=== PATIENT | male | born 2000 | race African-American/Black ===

== ENCOUNTER 2022-06-26 12:13 | Outpatient (CLI) | payer MEDICAID, SELFPAY | END 2022-06-26 12:14 | disposition home or self-care (01) | LOC: LKVREF 12:26 | PROVIDERS: Visit Provider Emergency Medicine | DX: Z11.3 Encounter for screening for infections with a predominantly sexual mode of transmission (principal) | CPT/HCPCS: 87491; 87591 ==

== ENCOUNTER 2023-03-28 09:48 | Outpatient (CLI) | payer MEDICAID, SELFPAY | END 2023-03-28 09:49 | disposition home or self-care (01) | PROVIDERS: PCP Family Medicine; Visit Provider Family Medicine | DX: R07.81 Pleurodynia (principal) | CPT/HCPCS: 80053; 83021 ==

== ENCOUNTER 2023-03-29 10:35 | Outpatient (CLI) | payer MEDICAID, SELFPAY ==
--- NOTE | 2023-03-29 11:00 | CRLHL7_ITS ---
For Patients: As a result of the Century Cures Act, medical imaging exams and procedure reports are released immediately into your electronic medical record. You may view this report before your referring provider. If you have questions, please contact your health care provider. INDICATION: PLEURODYNIA COMPARISON: none TECHNIQUE: CT volumetric acquisition was performed of the thorax during intravenous infusion of 95 cc Isovue 370 nonionic intravenous contrast. Please note that all CT scans at this facility use dose modulation, iterative reconstruction, and/or weight-based dosing when appropriate to reduce radiation dose to as low as reasonably achievable. FINDINGS: The CT images are of acceptable quality and demonstrate normal uniform vascular enhancement within the pulmonary arteries. There are no suspicious filling defects which would indicate pulmonary thromboemboli. There is no evidence of pleural or pericardial fluid. The heart and thoracic aorta appear normal. There is no evidence of lymphadenopathy within the central mediastinum or within either axilla. On lung window settings, there is no evidence of pneumothorax. The pulmonary parenchyma has uniform density and there is no evidence of hemorrhage or pneumonia. IMPRESSION: No evidence of pulmonary thromboembolism. Please note that all CT scans at this facility use dose modulation, iterative reconstruction, and/or weight-based dosing when appropriate to reduce radiation dose to as low as reasonably achievable. Dictated by Cristian Humphreys MD @ 03/29/2023 1:39:21 PM (Electronically Signed)
== END 2023-03-29 10:36 | disposition home or self-care (01) ==
LOC: CT 10:38
PROVIDERS: PCP Family Medicine; Visit Provider Family Medicine
DX: R07.81 Pleurodynia (principal)
CPT/HCPCS: 71275; Q9967

== ENCOUNTER 2023-06-13 10:48 | Outpatient (CLI) | payer MEDICAID, SELFPAY | END 2023-06-13 10:49 | disposition home or self-care (01) | PROVIDERS: PCP Family Medicine; Visit Provider Family Medicine | DX: N34.2 Other urethritis (principal); Z11.3 Encounter for screening for infections with a predominantly sexual mode of transmission | CPT/HCPCS: 86592; 86703; 87086; 87491; 87591 ==

== ENCOUNTER 2023-06-15 16:06 | Emergency (ER) | payer MEDICAID, SELFPAY ==
[2023-06-15 16:28] VITALS: BP 152/77; PULSE 82; RESP 16; TEMP 36.7; O2SAT 98; BMI 29.1
--- NOTE | 2023-06-15 16:44 | ED.GENADULT ---
HPI - General Adult General Chief complaint: Urogenital Problems, Male Stated complaint: sharp pain in groin area Time Seen by Provider: 06/15/23 16:41 History of Present Illness HPI narrative: Sharp pain/ burning in groin area for last 5-6 days. Pain is coming from tip of penis, no testicular pain . Getting worse . 7/10 pain. Not peeing much , or having BM. Rectal pain too. No pain with urination. When asked about STD's says he is unsure. No medications for pain. 23-year-old man presenting to the emergency department with complaint of genitourinary pain specifically distal penis. Has a ?stinging? sensation. Does not actually have dysuria. No pyuria noted. Says that his says to go in and get checked out and tell them everything. When I get to the end of this interview and I request again whether not there is anything that I need to know, he says no. I asked further about what he is most afraid of; it appears that he is worried about potential herpes but does not know how he would have gotten that. He does not having abdominal pain. He notes that he has been urinating less. Also is constipated. Could not remember the when asked when the last time is that he had a bowel movement but then when asked specifically about this morning he admits to 2 small turds. He does admit to straining at bowel. Sounds like spouse is concerned that he might have a prostate problem. Has had no fever. He admits to anxiety ramping up over what might be going on. He then describes a tingling that he has been noting at the shaft base of the penis. Related Data Previous Rx's Medication Instructions Recorded amitriptyline 10 mg tablet 10 - 50 mg (1 - 5 x 10 mg) PO QHS 05/23/23 #90 tabs doxycycline monohydrate 100 mg 100 mg PO BID #14 tabs 06/19/23 tablet Allergies Allergy/AdvReac Type Severity Reaction Status Date / Time No Known Drug Allergies Allergy Verified 06/19/23 15:37 Review of Systems Status of ROS: Reports: 6 or more systems reviewed and unremarkable except as noted in History and below [facility] Medical History (Updated 06/15/23 @ 19:23 by Cristian Rothman MD) Urethritis ?N34.2 - Other urethritis (ICD-10) Dysuria ?R30.0 - Dysuria (ICD-10) Surgical History (Updated 03/28/23 @ 10:01 by Ayush Holder MD) History of surgery on arm ?Z98.890 - Other specified postprocedural states (ICD-10) Social History Smoking Status: Never smoker Do you use any of these nicotine containing products: None How often do you have a drink containing alcohol: never AUDIT-C Alcohol total score: 0 Non-prescribed substance use: marijuana (any form) Little interest or pleasure in doing things: not at all Feeling down, depressed, or hopeless: several days Exam Narrative: Exam Narrative: Well-nourished. Pleasant. Mildly anxious. Breathing easily. Skin is warm and dry. There is no flank pain. Abdomen is soft and nontender. There is some mild inflammation consistent with abrasion the left inguinal area. He thinks that underwear had been chafing here. On there is a small mole in this area. I do not see any open sores. Examination further the genitourinary area is without inflammatory changes on the glans or urethral area. No fluid. No tenderness or swelling to the testicles. No inguinal swellings. Rectal exam is with some mild inflammation at the 12 o'clock position in the perianal area. I do not see evidence of anal fissure hemorrhoidal tissue otherwise. Did not then do anoscopy. ROBERT is done with 30 g or so prostate which is smooth and nontender. Const: Vital Signs, click to edit/add: Vital Signs - 24 hr 06/15/23 16:28 Temperature 98.1 F Pulse Rate [Right Pulse Oximeter] 82 Respiratory Rate 16 Blood Pressure [Ri ght Upper Arm] 152/77 H Pulse Oximetry 98 Oxygen Delivery Me thod Room Air Documenting provider has reviewed patient's vital signs: yes Course Vital Signs Vital signs: Initial Vital Signs Temperature 98.1 F 06/15/23 16:28 Temperature Source Temporal Artery Scan 06/15/23 16:28 Pulse Rate 82 06/15/23 16:28 Respiratory Rate 16 06/15/23 16:28 Blood Pressure 152/77 H 06/15/23 16:28 Blood Pressure Mean 102 06/15/23 16:28 Blood Pressure Position Sitting 06/15/23 16:28 Pulse Oximetry 98 06/15/23 16:28 Oxygen Delivery Method Room Air 06/15/23 16:28 Vital Signs Temperature 98.1 F 06/15/23 16:28 Pulse Rate 82 06/15/23 16:28 Respiratory Rate 16 06/15/23 16:28 Blood Pressure 152/77 H 06/15/23 16:28 Pulse Oximetry 98 06/15/23 16:28 Oxygen Delivery Method Room Air 06/15/23 16:28 Temperature 98.1 F 06/15/23 16:28 Pulse Rate 82 06/15/23 16:28 Respiratory Rate 16 06/15/23 16:28 Blood Pressure 152/77 H 06/15/23 16:28 Pulse Oximetry 98 06/15/23 16:28 Oxygen Delivery Method Room Air 06/15/23 16:28 Medical Decision Making MDM Narrative Medical decision making narrative: Does not sound have personal risk factors for infection. The I think bladder scan would be helpful here. I am not convinced that has an obstruction. Will evaluate further for evidence of constipation low seems to be describing this. I think this might be therapeutic as well. Anxiety is likely playing a role in amplifying symptoms. No significant accumulation of urine on bladder scan. Labs are unremarkable gonorrhea chlamydia are negative Offered reassurance at this point. See patient discharge plan for further discussion Lab Data Lab results reviewed: Yes I reviewed the patient's lab results Labs: Lab Results 06/15/23 Range/Units 17:12 Urine Color Dark yellow (Yellow) Urine Appearance Clear (Clear) Urine pH 5.5 (5.0-8.5) Ur Specific [place] >= 1.030 (1.000-1.030) Urine Protein Trace A (Negative) Urine Glucose (UA) Negative (Negative) Urine Ketones 1+ A (Negative) Urine Blood Negative (Negative) Urine Nitrite Negative (Negative) Urine Bilirubin 1+ A (Negative) Urine Urobilinogen 0.2 (0.2-1.0) Ur Leukocyte Esterase Negative (Negative) Urine RBC 0-2 (0-2) Urine WBC 0-2 (0-5) Ur Squamous Epith Cells Few (None-Few) Urine Bacteria Few A (None) Urine Mucus Moderate A (None) C.trachomatis Ampl DNA NOT DETECTED (No Detected) N.gonorrhoeae Ampl DNA NOT DETECTED (No Detected) Discharge Plan Discharge Clinical Impression: Anxiety, Dysuria, Constipation, Dehydration Patient Disposition: Home, Self-Care Condition: Stable Additional Instructions: I do think you need to drink more water. Intake should generally be 2-3 L of water daily. This may also help with the sense of stinging that you are feeling. At least for now I also would add MiraLax equivalent to at least 8 oz of liquid 2 to 3 times a day and adjust to stool consistency. As discussed be more gentle with cleaning after bathrooming. Consider addition of a toilet top bidet. In the meantime irritation might be helped with lidocaine containing hemorrhoidal cream or witch Sheryl. As far as the chafing goes, wear looser forms of underwear. Follow-up if not improved in a couple of weeks. Activity Level: No Restrictions Discharge Diet: Regular Prescriptions: No Action doxycycline monohydrate 100 mg tablet 100 mg PO BID Qty: 14 0RF amitriptyline 10 mg tablet 10 - 50 mg PO QHS Qty: 90 0RF Rx Instructions: Start 10 mg nightly and increase by 10 mg each week as needed up to a total of 50 mg nightly for pain control. Follow Up/Referrals: Ayush Holder MD [Primary Care Provider] - Stand Alone Forms: Markr Info Instructions
--- NOTE | 2023-06-15 17:02 | XR_ITS ---
Final Report Patient: CHLOE REGALADO Facility:?[facility] Patient ID:?[id number] Site Patient ID:?[id number]. Site :?[id number] Study:?XRay Abdomen 1 VIEW SUPINE-06/15/2023 5:18:35 PM Ordering Physician:NEWTON Final Report: HISTORY: Evaluate for constipation. TECHNIQUE: One view of the abdomen. COMPARISON: No prior. FINDINGS: No small bowel obstruction. No constipation. No calculus projecting over the renal profiles. Lung bases are clear. No acute bony abnormality. There is CAM morphology of proximal femora bilaterally. IMPRESSION: No bowel obstruction or constipation. Dictated by Adithya Brock MD @ 06/15/2023 5:42:19 PM Dictated by: Adithya Brock MD @ 06/15/2023 17:42:26 (Electronic Signature)
[2023-06-15 17:18] LABS: Appearance Urine Clear (Clear); Bilirubin Urine 1+ (Negative); Blood Urine Negative (Negative); Color Urine Dark yellow (Yellow); Glucose Urine Negative (Negative); Ketones Urine 1+ (Negative); Leukocyte Esterase Urine Negative (Negative); Nitrite Urine Negative (Negative); Protein Urine Trace (Negative); Specific Gravity Urine >= 1.030 (1.000-1.030); Urobilinogen Urine 0.2 (0.2-1.0); pH Urine 5.5 (5.0-8.5)
[2023-06-15 17:37] LABS: Bacteria Urine Few; RBC Urine 0-2 (0-2); Squamous Epithelial Cell Urine Few (None-Few); WBC Urine 0-2 (0-5)
[2023-06-15 17:38] LABS: Mucus Urine Moderate
[2023-06-15 19:02] LABS: Chlamydia DNA Amplified* NOT DETECTED (No Detected); GC DNA Amplified* NOT DETECTED (No Detected)
== END 2023-06-15 19:29 | disposition home or self-care (01) ==
PROVIDERS: Emergency Provider Family Medicine; PCP Family Medicine
DX: R30.0 Dysuria (principal); F41.9 Anxiety disorder, unspecified; K59.00 Constipation, unspecified
CPT/HCPCS: 51798; 74018; 81001; 87086; 87491; 87591; 99283; 99284

== ENCOUNTER 2024-05-28 08:55 | Outpatient (RCR) | payer MEDICAID, SELFPAY ==
--- NOTE | 2024-05-28 13:15 | PT.OPE ---
PT [place] Outpatient Eval PT [facility] Outpatient Eval Start: 05/19/24 12:35 Freq: Status: Active Protocol: Document 05/28/24 13:14 CJT (Rec: 05/28/24 13:15 CJT [id number]) E-signed By Rah Moore PT Physical Therapy Outpatient Evaluation Insurance Information Recert Due Date 08/26/24 Insurance Name Medicaid,[employer] Medical Diagnosis Other instability R & L ankle Patelofemoral Treating Diagnosis R knee pain L knee pain R Hip pain B Ankle pain Referring Franklin Rich MD Subjective Preferred Name Tigre Subjective Pt presents with complaints of R hip pain, B knee pain, and B ankle pain. Pain has been ongoing for past 12-18 months of insidious onset. Walking and standing makes his pain worse. Also notes a sense of instability in his knees on occasion. Pt notes popping in the R hip with flexion and notes tightness with this. Hears popping in B knees with squatting. R knee hurts on anteromedial aspect and posterolateral aspect. B ankles also pop frequently with movement and especially with walking. Has pain in ankles with excessive standing . 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, student (elementary ed) Precautions Therapy Limitations/Systems Review Not Limited Objective Other/Pertinent Objective R Hip ROM Flexion - 120 IR/ER - 25/25 Extension - 10 L Hip ROM Flexion - 120 IR/ER - 25/25 Extension - 10 R knee ROM - 8-0-135 L knee ROM - 8-0-135 R ankle PF/DF(kf)/DF(ke) - WNL L ankle PF/DF(kf)/DF(ke) - WNL R Hip Strength - 5/5 MMT for all L Hip Strength - 5/5 MMT or all R knee Extension - 5/5 MMT R Knee Flexion - 5/5 MMT L knee Extension - 5/5 MMT L knee Flexion - 5/5 MMT R ankle - 5/5 MMT for all L ankle - 5/5 MMT for all Palpation: pt reports pain/ tenderness with palpation to Special Testing Anterior drawer: negative B Posterior drawer: negative B Valgus stress positive for increased laxity on R with 30 degrees knee flexion FADIR: negative B BHAKTI: negative B Kajal's: positive B, anterior pelvic tilt noted bilaterally, pts knees do fully flex however Hamstring: negative B Assessment Assessment/Impression Delmer is a very pleasant 24 year old Male who presents to our clinic for evaluation and treatment of R knee pain, R hip pain, and pain in B ankles . Pt had concerns of clicking and popping in B knees and ankles although this is non- painful. Pts hip is demonstrating very clear signs of iliopsoas tendinosis or dancers hip. Pts R knee is likely experiencing pain due to increased extension ROM (8 degrees beyond neutral) as well a some ligamentous laxity in MCL and ACL. He did have a positive Yaritza's test today on R but this was not painful. Pt will benefit from gradual progress of muscle activation and strength exercises to help provide adequate support to B knees. He will also likely benefit from consistent use of a knee brace to help improve stability. I encouraged Tigre to purchase a neoprene knee sleeve to be worn while he is on his feet. While pts ankles pop when he walks, I encouraged him to not worry about this as he does not have pain with popping. 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 We will continue to investigate this more in subsequent treatment sessions. The nature of the pts condition was explained and all questions were answered to the pts satisfaction. Skilled PT services are medically necessary to address deficits and return patient to highest level of function. Recommend physical therapy sessions 1-2/ week for 4-6 weeks. Pt agrees with this plan. Printout of HEP was given for I completion and pt gives verbal understanding of each exercise . Primary Functional Limitations Standing, walking, exercising Plan of Care Rehabilitation Potential Good Physical Therapy Goals STG - To be completed in 4 weeks: 1. Pt will report consistent use of knee sleeve to provide improve stability to R knee and reduce pain. 2. Pt will report ability to stand for at least 30 minutes without increased ankle pain so that he may coach cleaner youth football without needing to kneel often to alleviate pain. LTG - To be completed in 6-8 weeks: 1. Pt to be I with HEP so that they may I manage progression of symptoms. 2. Pt will demo ability to perform sit ups and leg raises without clicking in R hip so that he may return to regular performance of his preferred core exercises. Treatment Plan/Direct Interventions Dry Needling,Electrical Stimulation,Gait Training,Heat ,Ice/Cold/Vasopneumatic,Joint Mobilization,Manual Therapy, Neuromuscular Re-ed,Self-Care/ Home Management,Therapeutic Activities,Therapeutic Exercises Frequency/Duration 1-2/week for 4-6 weeks Patient Will Be Discharged From Therapy Completion of LTG(s),Skills Plateau,Independent w/HEP, Independently Progressing Evaluation Billing Untimed Code Treatment Minutes 40 PT Eval No Charge No Complexity Low Certification Information Initial Certification Date 05/28/24 Ending Certification Date 08/26/24 Provider Signature Required Yes Provider Signature Shows Agreement With POC & Medical Necessity Physician NPI Number Write NPI# Here Physician Comment/Change : Physician Signature & Date Requested Please Sign/Date Here
== END 2024-08-12 07:30 | disposition home or self-care (01) ==
PROVIDERS: PCP Family Medicine; Visit Provider Orthopaedic Surgery
DX: M25.371 Other instability, right ankle (principal); M25.372 Other instability, left ankle; M22.2X1 Patellofemoral disorders, right knee; M22.2X2 Patellofemoral disorders, left knee; M25.551 Pain in right hip; M25.572 Pain in left ankle and joints of left foot; M25.571 Pain in right ankle and joints of right foot; Z51.89 Encounter for other specified aftercare
CPT/HCPCS: 97110; 97161

== ENCOUNTER 2025-02-02 17:40 | Emergency (ER) | payer MEDICAID, SELFPAY ==
--- OUTSIDE RECORDS SUMMARY | 2025-02-02 17:43 | XMS_ITS | Clinical Summary ---
Author Organization [facility] Address [address] [place] [id number] Care Team Providers Care Lead Software Test Engineer Name Role Phone No Ref-Primary, Physician Primary Care Provider Allergies No known active allergies Medications order for DMEIndications: Inversion sprain of ankle, right, initial encounter,Sprai n of right foot, initial encounter Cam walker boot right 1 Units 07/07/2018 Active order for DMEIndications: Inversion sprain of ankle, right, initial encounter,Sprai n of right foot, initial encounter crutches 1 Units 07/07/2018 Active Active Problems No known active problems Immunizations Immunization Administration Dates Next Due Comvax (HIB/HepB) 01/24/2001,2000,03/22/20 00 DTAP (<7y) 12/21/2004, 1,2000,2000,2000 HPV9 (Gardasil) 10/20/2018,11/19/2014 Influenza (IIV3) PF 03/18/2007 Influenza Vaccine >6 months,quad, PF 02/02/2020 MMR (MMRII) 12/21/2004,01/24/2001 Meningococcal ACWY (Menveo ) 10/20/2018,11/19/2014 Pneumococcal (PCV 7) 2000,2000,03/22 Poliovirus, inactivated (IPV) 12/21/2004 ,2000,2000,1999 TDAP (Adacel,Boostrix) 12/17/2012 Varicella (Varivax) 12/17/2012,01/24/2001 Social History Tobacco Use Types Packs/Day Years Used Date Smoking Tobacco: Never Smokeless Tobacco: Never Alcohol Use Standard Drinks/Week Comments No 0 (1 standard drink = 0.6 oz pur e alcohol) Adolescent Education Answer Date Record ed Getting School Help Needed Not on file 01/05 Sex and Gender Information Value Date Recorded Sex Assigned at Not on file Legal Sex Male 4:46 AM BONE TENDER Gender Identity Not on file Sexual Orientation Not on file Last Filed Vital Signs Vital Sign Reading Time Taken Comments Blood Pressure 110/76 07/07/2018 3:39 PM CDT Pulse 73 07/07/2018 3:39 PM CDT Temperature 36.8 C (98.3 F) 05/16/2017 6:15 PM BONE TENDER Respiratory Rate 16 07/07/2018 3:39 PM CDT Oxygen Saturation 96% 07/07/2018 3:39 PM CDT Inhaled Oxygen Concentration - - Weight 61.7 kg (136 lb) 05/16/2017 6:15 PM BONE TENDER Height 172.7 cm (5' 8) 07/07/2018 3:39 PM CDT Body Mass Index - - Plan of Treatment Health Maintenance Due Date Last Done Comments ADVANCE CARE PLANNING 2000 ANNUAL REVIEW OF HM ORDERS 2000 YEARLY PREVENTIVE VISIT 01/02/2003 HIV SCREENING 01/02/2015 HEPATITIS C SCREENING 01/02/2018 DTAP/TDAP/TD VACCINE (7 - Td or Tdap) 12/17/2022 12/17/2012, 12/21/2004, 01/24/2001, Additional history exists COVID-19 VACCINE ( - season) 2023 01/12/2021 PHQ-2 (once per calendar year) 2024 INFLUENZA VACCINE (#1) 2024 02/02/2020, 2006 ZOSTER VACCINE (1 of 2) 01/02/2050 PNEUMOCOCCAL VACCINE: PEDIATRICS (0 to 5 YEARS) AND AT-RISK PATIENTS (6 to 49 YEARS) Aged Out 2000, 2000, 2000 No longer eligible based on patient's age to complete this topic HEPATITIS B VACCINE Completed 01/24/2001, 2000, 2000 HPV VACCINE Completed 10/20/2018, 11/19/2014 MENINGITIS VACCINE Completed 10/20/2018, 11/19/2014 MENINGITIS B VACCINE Aged Out No long er eligible based on patient's age to complete this topic Care Teams Lead Software Test Engineer Relationship Specialty Start Date End Date No Ref-Primary, Physician PCP - General 02/19/17
[2025-02-02 17:51] VITALS: BP 133/85; PULSE 91; RESP 16; TEMP 37.1; O2SAT 96; BMI 35.5
--- NOTE | 2025-02-02 19:29 | ED.GENADULT ---
HPI - General Adult General Chief complaint: Skin/Abscess/Foreign Body Stated complaint: Gash/infection on underside of chin Time Seen by Provider: 02/02/25 19:29 History of Present Illness HPI narrative: under L chin had lump that he thought was ingrown hair. has been getting bigger over the last week. when playing with daughters it got hit and started bleeding and increased pain. 25-year-old young man presenting to the emergency department with concern of swelling pain and drainage underneath his chin toward the left side. Apparently had a lump that he suspected was an ingrown hair over the last week began to swell. Got hit while playing with his kids and started to bleed. Pain is increased. No fever. No sense of lesion or swelling in his mouth. Related Data Home Medications ?Medication ?Instructions ?Recorded ?Confirmed No Known Home Medications 02/02/25 02/02/25 Allergies Allergy/AdvReac Type Severity Reaction Status Date / Time No Known Drug Allergies Allergy Verified 05/21/24 15:00 Review of Systems Status of ROS: Reports: 6 or more systems reviewed and unremarkable except as noted in History and below [facility] Medical History Urethritis ?N34.2 - Other urethritis (ICD-10) Dysuria ?R30.0 - Dysuria (ICD-10) Surgical History (Updated 05/14/24 @ 13:09 by Larissa Sharma ~ [facility], [facility]) History of surgery on arm ?Z98.890 - Other specified postprocedural states (ICD-10) Social History What is your current living situation?: I presently have a place to live Problems where you live: no known problems In the past 12 months, utilities in danger of being shut off: no In past 12 months, lack of transportation kept you from medical appts, meetings, work, or getting things needed for daily living: no In the past 12 mos, have been you worried that your food would run out before you had money to buy more?: never true In the past 12 mos, the food you bought just didn't last and you didn't have money to buy more?: never true Smoking Status: Never smoker Do you use any of these nicotine containing products: None How often do you have a drink containing alcohol: never AUDIT-C Alcohol total score: 0 Non-prescribed substance use: marijuana (any form) How often does anyone, including family, friends and others, physically hurt you: never How often does anyone, including family, friends and others, insult or talk down to you: rarely How often does anyone, including family, friends and others, threaten you with harm: never How often does anyone, including family, friends and others, scream or curse at you: rarely Health Related Social Needs: Other personal risk factors, not elsewhere classified (Z91.89) Exam Narrative: Exam Narrative: Pleasant. Quiet. NAD. Breathing easily. Afebrile. Heart in regular rate. Neck is supple without lymphadenopathy. Removing gauze from under his chin shows a 1 and 1/2 inch oval swelling underneath the left anterior jaw. There is some dried blood centrally. Larger area of induration and slight fluctuance. I do not see significant redness or induration of the skin in this area. Const: Vital Signs, click to edit/add: Vital Signs - 24 hr 02/02/25 21:02 Temperature 98.1 F Pulse Rate [Pulse Oximeter] 60 Respiratory Rate 18 Blood Pressure [Ri ght Upper Arm] 120/67 Pulse Oximetry 97 Oxygen Delivery Me thod Room Air Documenting provider has reviewed patient's vital signs: yes Course Vital Signs Vital signs: Initial Vital Signs Temperature 98.7 F 02/02/25 17:51 Temperature Source Temporal Artery Scan 02/02/25 17:51 Pulse Rate 91 02/02/25 17:51 Respiratory Rate 16 02/02/25 17:51 Blood Pressure 133/85 02/02/25 17:51 Blood Pressure Mean 101 02/02/25 17:51 Blood Pressure Position Sitting 02/02/25 17:51 Pulse Oximetry 96 02/02/25 17:51 Oxygen Delivery Method Room Air 02/02/25 17:51 Vital Signs Temperature 98.7 F 02/02/25 17:51 Pulse Rate 91 02/02/25 17:51 Respiratory Rate 16 02/02/25 17:51 Blood Pressure 133/85 02/02/25 17:51 Pulse Oximetry 96 02/02/25 17:51 Oxygen Delivery Method Room Air 02/02/25 17:51 Temperature 98.1 F 02/02/25 21:02 Pulse Rate 60 02/02/25 21:02 Respiratory Rate 18 02/02/25 21:02 Blood Pressure 120/67 02/02/25 21:02 Pulse Oximetry 97 02/02/25 21:02 Oxygen Delivery Method Room Air 02/02/25 21:02 Medications Administered Medications: Discontinued Medications Generic Name Dose Route Start Last Admin Trade Name Justin PRN Reason Stop Dose Admin Lidocaine HCl 4 ml 02/02/25 19:42 02/02/25 19:58 Lidocaine 1% 5 Ml (Pf) 5 Ml Vial INJECTION 02/02/25 19:43 4 ml ONCE ONE Administration Medical Decision Making MDM Narrative Medical decision making narrative: I would suspect abscess here. Will need to explore further. Does not seem to have significant cellulitis. Describing no intraoral lesions. Discussed recommended exploration and likely I and D. Tigre in agreement to proceed. Procedure is I and D Cleansed area with Betadine. Anesthetized area with 4 mL of fanned lidocaine. This allowed for incision centrally with 11 blade. Purosanguinous drainage obtained. Collected for wound culture. Needed re-dosing of lidocaine. Another 4 mL injected. Explored with curved mosquito breaking up loculations. With this and some pressure did result in expression of what looks to be cyst capsule and caseating material. Pressure applied until only bloody drainage apparent. Less than 2 mL of blood loss. Re-examination of the skin in the area does show some thinning and breakdown with a few perforations centrally. Likely a sebaceous cyst that had been present for some time. Depth is not so much that I think would benefit from wick placement furthermore these perforations I think will help in drainage. Placed antibiotic ointment and absorbent gauze and Band-Aid. Tigre did experience pain during this process but tolerated it quite well. I do not think has degree of cellulitis that will warrant oral antibiotics. See patient discharge plan for further discussion Place antibiotic and change dressing as needed, at least daily, over the next week. Watch for marked increase in swelling, spreading redness after 2 days, worsening purulent drainage, fever. Can take up to 800 mg of ibuprofen or up to 1000 mg of acetaminophen per dose. Discharge Plan Discharge Clinical Impression: Abscess, Ruptured epidermal cyst Patient Disposition: Home, Self-Care Condition: Improved Additional Instructions: Place antibiotic and change dressing as needed, at least daily, over the next week. Watch for marked increase in swelling, spreading redness after 2 days, worsening purulent drainage, fever. Can take up to 800 mg of ibuprofen or up to 1000 mg of acetaminophen per dose. Prescriptions: No Action No Known Home Medications Follow Up/Referrals: Ayush Holder MD [Primary Care Provider, Family Practice] Stand Alone Forms: [employer] Info Instructions
[2025-02-02] MEDS: LIDOCAINE 1% 5 ml (pf) 5 ML VIAL 4 ML INJECTION (19:58)
[2025-02-02 21:02] VITALS: BP 120/67; PULSE 60; RESP 18; TEMP 36.7; O2SAT 97
== END 2025-02-02 21:27 | disposition home or self-care (01) ==
PROVIDERS: Emergency Provider Family Medicine; PCP Family Medicine
DX: L72.0 Epidermal cyst (principal); L02.01 Cutaneous abscess of face
CPT/HCPCS: 10060; 87070; 99284